=== PATIENT | female | born 1960 | race Two or more races ===

== ENCOUNTER → 2020-05-11 08:00 | Outpatient (CLI) | payer OTHER | END | disposition home or self-care (01) | LOC: LAB 08:00 → AMB-ENDOS 05-14 14:15 → ADM 05-14 14:15 → AMB-ENDOS 05-18 14:15 → EDSTATUS 05-18 14:15 | PROVIDERS: ATTEND Colon & Rectal Surgery | DX: D12.0 Benign neoplasm of cecum (principal); Z20.828 Contact with and (suspected) exposure to other viral communicable diseases; Z86.010 Personal history of colon polyps; K92.1 Melena ==

== ENCOUNTER → 2020-06-29 08:00 | Outpatient (CLI) | payer OTHER | END | disposition home or self-care (01) | LOC: LAB 08:00 → ADM 13:30 → AMB-ENDOS 07-06 13:30 → EDSTATUS 07-06 13:30 | PROVIDERS: ATTEND Colon & Rectal Surgery | DX: U07.1 COVID-19 (principal) ==

== ENCOUNTER 2020-10-26 08:10 | Day surgery (SDC) | payer OTHER | END 2020-10-26 14:05 | disposition home or self-care (01) | LOC: AMB-ENDOS 08:10 | PROVIDERS: ATTEND Colon & Rectal Surgery | DX: D12.0 Benign neoplasm of cecum (principal); K64.2 Third degree hemorrhoids; Z20.822 Contact with and (suspected) exposure to COVID-19 ==